=== PATIENT | female | born 1945 | race Caucasian/White ===

== ENCOUNTER 2020-04-10 12:20 | Inpatient (IN) | payer OTHER ==
[~2020-04-10] VITALS: Ht 157.5 cm; Wt 50.8 kg
[2020-04-10] MEDS ORDERED: [UNRECOGNIZED DRUG - REMARK] (12:41)
[2020-04-10] MEDS ORDERED: FLECAINIDE ACET50 MG (12:42)
[2020-04-10] MEDS ORDERED: AMLODIPINE (12:44)
[2020-04-12] MEDS ORDERED: BACTRIM DS TAB1 EACH PO (08:06)
[2020-04-12] MEDS ORDERED: XARELTO10 MG PO (08:06)
[2020-04-12] MEDS ORDERED: INTEGRA PLUS C1 EACH PO (08:06)
[2020-04-12] MEDS ORDERED: ULTRAM50 MG PO (08:06)
== END 2020-04-12 11:10 | disposition home or self-care (01) | DRG 481 ==
LOC: ER 12:20 → SURH 14:29
PROVIDERS: ADMIT Orthopaedic Surgery Sports Medicine; ATTEND Orthopaedic Surgery Sports Medicine
PROC: 0QS736Z Reposition Left Upper Femur with Intramedullary Internal Fixation Device, Percutaneous Approach (ICD-10-PCS; principal; 2020-04-11 10:45)
DX: S72.032A Displaced midcervical fracture of left femur, initial encounter for closed fracture (principal); M35.8 Other specified systemic involvement of connective tissue; M79.7 Fibromyalgia

== ENCOUNTER 2020-06-02 21:13 | Emergency (ER) | payer OTHER ==
[~2020-06-02] VITALS: Ht 157.5 cm; Wt 51.3 kg
[~2020-06-02 21:13] MED LIST: AMLODIPINE; BACTRIM DS TAB1 EACH PO; FLECAINIDE ACET50 MG; INTEGRA PLUS C1 EACH PO; ULTRAM50 MG PO; XARELTO10 MG PO; [UNRECOGNIZED DRUG - REMARK]
[2020-06-02] MEDS ORDERED: AMLODIPINE-OLM1 EACH (21:52)
[2020-06-03] MEDS ORDERED: PEPCID40 MG PO (02:23)
[2020-06-03] MEDS ORDERED: LEVSIN/SL0.125 MG SL (02:23)
== END 2020-06-03 02:49 | disposition home or self-care (01) ==
LOC: ER 21:13
DX: U07.1 COVID-19 (principal); K29.70 Gastritis, unspecified, without bleeding